=== PATIENT | male | born 1990 | race Caucasian/White ===

== ENCOUNTER 2017-04-04 06:23 | Emergency (ER) | payer SELFPAY ==
[~2017-04-04] VITALS: Ht 172.7 cm; Wt 88.6 kg
[2017-04-04 06:29] VITALS: Ht 172.7 cm; Wt 88.6 kg
[2017-04-04] MEDS ORDERED: KETOROLAC 30 MG INJ IV STA (06:49)
[2017-04-04 07:09] LABS: BASOPHILS % 0.2 % (0.0-2.0); EOSINOPHILS % 0.3 % (0.0-7.0); HEMATOCRIT 45.8 % (42.0-52.0); HEMOGLOBIN 16.3 g/dl (14.0-18.0); LYMPHOCYTES # 1.4 10^3/ul (0.8-2.9); LYMPHOCYTES % 15.1 % (15.0-51.0); MEAN CORPUSCULAR HEMOGLOBIN 29.5 pg (29.0-33.0); MEAN CORPUSCULAR HGB CONC 35.6 g/dl (32.0-37.0); MEAN CORPUSCULAR VOLUME 82.8 fl (82.0-101.0); MEAN PLATELET VOLUME 10.5 fl (7.4-10.4); MONOCYTE # 0.4 10^3/ul (0.3-0.9); MONOCYTES % 4.4 % (0.0-11.0); NEUTROPHIL # 7.6 10^3/ul (1.6-7.5); NEUTROPHILS % 79.5 % (39.0-77.0); PLATELET COUNT 201 10^3/UL (140-415); RED BLOOD COUNT 5.53 10^6/ul (4.70-6.10); RED CELL DISTRIBUTION WIDTH 12.2 % (11.5-14.5); WHITE BLOOD COUNT 9.6 10^3/ul (4.8-10.8)
[2017-04-04 07:29] LABS: ADD UMIC YES; UR ASCORBIC ACID NEGATIVE (NEGATIVE); UR BILIRUBIN (Dip) NEGATIVE (NEGATIVE); UR BLOOD (Dip) 1+ mg/dL (NEGATIVE); UR CLARITY CLOUDY (CLEAR); UR COLOR YELLOW (YELLOW); UR GLUCOSE (Dip) NEGATIVE (NEGATIVE); UR KETONES (Dip) NEGATIVE (NEGATIVE); UR LEUKOCYTE ESTERASE (Dip) NEGATIVE Leu/ul (NEGATIVE); UR MUCUS FEW /HPF (NONE SEEN); UR NITRITE (Dip) NEGATIVE (NEGATIVE); UR RBC 4 /HPF (0-5); UR SPECIFIC GRAVITY (Dip) 1.025 (1.003-1.030); UR TOTAL PROTEIN (Dip) 1+ mg/dl (NEGATIVE); UR UROBILINOGEN (Dip) NEGATIVE (NEGATIVE)
[2017-04-04 07:31] LABS: ALBUMIN 4.8 g/dl (3.3-4.9); ALBUMIN/GLOBULIN RATIO 1.45; BILIRUBIN,INDIRECT 0.5 mg/dl (0-1.1); BILIRUBIN,TOTAL 0.5 mg/dl (0.2-1.3); CALCIUM 9.4 mg/dl (8.4-10.2); CREATININE 0.84 mg/dl (0.61-1.24); POTASSIUM 3.9 mmol/L (3.5-5.1); TOTAL PROTEIN 8.1 g/dl (6.1-8.1)
--- NOTE | 2017-04-04 07:51 | RADRPT ---
PROCEDURE: US Abdomen. CLINICAL INDICATION: Abdominal Pain TECHNIQUE: Oates scale and color Doppler imaging of the right upper quadrant COMPARISON: None FINDINGS: The aorta and visualized inferior vena cava are unremarkable in appearance. The liver is homogeneou s in echotexture and no focal liver lesions are seen. A 2 cm stone was seen in the neck of the gallb ladder which did not move with decubitus positioning. No wall thickening or pericholecystic fluid w as seen. The patient did not have a sonographic Chaves's sign according to the electronics technology instructor but did receive recent pain medication. No intra or extrahepatic biliary dilatation is seen. The common joan e duct measures 4 mm in maximal dimension. The right kidney measures 10.1 cm. No hydronephrosis or renal calculi are seen. The pancreas is partially obscured by bowel gas. No ascites is seen. IMPRESSION: Study slightly limited by bowel gas. 2 cm stone impacted in the gallbladder neck without wall thick ening, pericholecystic fluid, or ductal dilatation. HIDA scan may be helpful if acute cholecystitis is suspected clinically. RPTAT: HLBE Physician Kurt Date Time Electronically viewed and signed by Physician Kurt on 04/04/2017 07:51 YENNY/
--- NOTE | 2017-04-04 08:20 | ERD ---
ER Documentation Chief Complaint Date/Time DATE: 04/04/17 TIME: 08:14 Chief Complaint abdominal pain since last night HPI 26-year-old male complaining of right upper quadrant abdominal pain since last night. Patient stated that he vomited twice. He took ibuprofen for pain, but did not help. Patient has history of gallstone. He ate churros and fries for dinner last night. Denies fever or chills. Denies diarrhea. Denies right lower quadrant abdominal pain. ROS All systems reviewed and are negative except as per history of present illness. Allergies Allergies: Coded Allergies: Penicillins (Verified Allergy, Mild, rash, 04/04/17) PMhx/Soc Medical and Surgical Hx: pt denies Surgical Hx Hx Miscellaneous Medical Probl: Yes (Gallstone) Hx Alcohol Use: No Hx Substance Use: No Hx Tobacco Use: No Smoking Status: Never smoker Physical Exam Vitals Vital Signs Date Time Temp Pulse Resp B/P Pulse Ox O2 Delivery O2 Flow Rate FiO2 04/04/17 06:29 97.4 60 16 146/89 99 Physical Exam General: Well-developed, well-nourished, conscious and coherent, in no distress Skin: Warm and dry without rash, good texture and turgor Head: Normocephalic without evidence of trauma Eyes: Sclera and conjunctivae normal; pupils equal, round, and reactive to light; extraocular movements are intact Chest: Normal AP diameter. Good expansion without retractions. Nontender. Lungs are clear to auscultate bilaterally with good tidal volume Heart: Regular rate and rhythm. No murmur, rub, or gallops heard Abdomen: Soft, right upper quadrant tenderness with slight guarding, no mass or rebound. Bowel sounds are active. No hepatosplenomegaly Back: Without spinal or CVA tenderness Extremities: Full range of motion. Good strength bilaterally. No clubbing, cyanosis, or edema. Peripheral pulses are intact. Sensation intact Neuro: Alert and oriented 4, GCS 15. Cranial nerves grossly intact. Motor and sensory exams nonfocal. Moves all extremities. Speech clear. Gait normal Result Diagram: 04/04/17 0700 04/04/17 0700 Results 24 hrs Laboratory Tests Test 04/04/17 07:00 White Blood Count 9.610^3/ul Red Blood Count 5.5310^6/ul Hemoglobin 16.3g/dl Hematocrit 45.8% Mean Corpuscular Volume 82.8fl Mean Corpuscular Hemoglobin 29.5pg Mean Corpuscular Hemoglobin Concent 35.6g/dl Red Cell Distribution Width 12.2% Platelet Count 78750^3/UL Mean Platelet Volume 10.5fl Neutrophils % 79.5% Lymphocytes % 15.1% Monocytes % 4.4% Eosinophils % 0.3% Basophils % 0.2% Nucleated Red Blood Cells % 0.0/100WBC Neutrophils # 7.610^3/ul Lymphocytes # 1.410^3/ul Monocytes # 0.410^3/ul Eosinophils # 0.010^3/ul Basophils # 0.010^3/ul Nucleated Red Blood Cells # 0.010^3/ul Urine Color YELLOW Urine Clarity CLOUDY Urine pH 5.0 Urine Specific [place] 1.025 Urine Ketones NEGATIVEmg/dL Urine Nitrite NEGATIVEmg/dL Urine Bilirubin NEGATIVEmg/dL Urine Urobilinogen NEGATIVEmg/dL Urine Leukocyte Esterase NEGATIVELeu/ul Urine Microscopic RBC 4/HPF Urine Microscopic WBC 2/HPF Urine Mucus FEW/HPF Urine Hemoglobin 1+mg/dL Urine Glucose NEGATIVEmg/dL Urine Total Protein 1+mg/dl Sodium Level 140mmol/L Potassium Level 3.9mmol/L Chloride Level 103mmol/L Carbon Dioxide Level 28mmol/L Anion Gap 13 Blood Urea Nitrogen 14mg/dl Creatinine 0.84mg/dl Glucose Level 130mg/dl Calcium Level 9.4mg/dl Total Bilirubin 0.5mg/dl Direct Bilirubin 0.00mg/dl Indirect Bilirubin 0.5mg/dl Aspartate Amino Transf (AST/SGOT) 25IU/L Alanine Aminotransferase (ALT/SGPT) 52IU/L Alkaline Phosphatase 101IU/L Total Protein 8.1g/dl Albumin 4.8g/dl Globulin 3.30g/dl Albumin/Globulin Ratio 1.45 Lipase 92U/L Current Medications Medications (Trade) Dose Ordered Sig/Magda Route PRN Reason Start Time Stop Time Status Last Admin Dose Admin Ketorolac Tromethamine (Toradol) 30 mg ONCE STAT IV 04/04/17 06:49 04/04/17 06:51 DC 04/04/17 07:05 PROCEDURE: US Abdomen. CLINICAL INDICATION: Abdominal Pain TECHNIQUE: Oates scale and color Doppler imaging of the right upper quadrant COMPARISON: None FINDINGS: The aorta and visualized inferior vena cava are unremarkable in appearance. The liver is homogeneous in echotexture and no focal liver lesions are seen. A 2 cm stone was seen in the neck of the gallbladder which did not move with decubitus positioning. No wall thickening or pericholecystic fluid was seen. The patient did not have a sonographic Chaves's sign according to the commercial counsel but did receive recent pain medication. No intra or extrahepatic biliary dilatation is seen. The common bile duct measures 4 mm in maximal dimension. The right kidney measures 10.1 cm. No hydronephrosis or renal calculi are seen. The pancreas is partially obscured by bowel gas. No ascites is seen. IMPRESSION: Study slightly limited by bowel gas. 2 cm stone impacted in the gallbladder neck without wall thickening, pericholecystic fluid, or ductal dilatation. HIDA scan may be helpful if acute cholecystitis is suspected clinically. RPTAT: HLBE Physician Kurt Date Time Electronically viewed and signed by Lynn Werner Physician on 04/04/2017 07 :51 LE/ CC: ARETHA MERRITT. BENCH WORKER [employer] Procedures/MDM Well-appearing 26-year-old male with history gallstones present ED with right upper quadrant abdominal pain since last night. Gallbladder ultrasound showed a 2 cm stone impacted in the gallbladder neck without wall thickening, pericholecystic fluid, or ductal dilatation. CBC, CMP, and lipase are unremarkable. UA has 1+ hemoglobin, otherwise unremarkable. Patient given Toradol IV in the ED for pain. Patient reports resolution of pain after Toradol. Patient does not have cholecystitis or choledocholithiasis. I doubt acute appendicitis, pancreatitis, bowel obstruction, or other acute abdomen. Patient is advised to follow-up with PCP for general surgery referral. Patient appears well, stable for discharge and outpatient management. Medical decision making shared with patient and family. Education provided to patient and family. Patient and family expressed understanding of the plan. Medications on discharge: None. Follow-up: Primary care provider in 2-3 days or return to ED if worse. Disclaimer: Inadvertent spelling and grammatical errors are likely due to EHR/ dictation software use and do not reflect on the overall quality of patient care. Also, please note that the electronic time recorded on this note does not necessarily reflect the actual time of the patient encounter. Departure Diagnosis: Primary Impression: Gallstone Cholecystitis presence: without cholecystitis Biliary obstruction: without biliary obstruction Qualified Code: K80.20 - Calculus of gallbladder without cholecystitis without obstruction Condition: Stable Patient Instructions: Treating Gallstones, Gallstones [facility] Usted se roman hecho un examen mdico de control que le indica que no est en ammy condicin que requiera tratamiento urgente en el Departamento de Emergencia. Un estudio ms profundo y el tratamiento de tan condicin pueden esperar sin ningn riesgo hasta que usted sea atendida/o en el consultorio de tan mdico o ammy cl abhilash. Es responsabilidad suya arreglar ammy she para el seguimiento del nora. MANEJO DE CONDICIONES NO URGENTES EN EL FUTURO 1) Si usted tiene un mdico de atencin primaria: Usted debera llamar a tan mdico de atencin primaria antes de venir al departamento de emergencia. Despus de las horas de consultorio, tan doctor o tan asociado/a est disponible por telfono. El mdico o enfermero de salud en el servicio telefnico puede asesorarle por donta medio para atender el problema, o nora contrario se puede programar ammy she. 2) Si usted no tiene un mdico de atencin primaria: Llame al mdico o clnica de referencia que aparece abajo constantino las horas de consultorio para hacer ammy she para que le vean. CLINICAS: [facility] [phone] [id number] [facility] 198 [phone] [address] [facility] 790 [phone] [address] [facility] [phone] [place] [id number] [phone] [facility]. [phone] [address] Additional Instructions: Llame al doctor MAANA y jaylin ammy SHE PARA DENTRO DE 2-3 GILL.Dgale a la secretaria que nosotros le instruimos hacer esta she.Avise o llame si tan condicin se empeora antes de la she. Regresa aqui si peor o no mejor. ARETHA MERRITT. CHARLENE Apr 04, 2017 08:20
== END 2017-04-04 08:15 | disposition home or self-care (01) ==
LOC: FTE 06:23
DX: K80.20 Calculus of gallbladder without cholecystitis without obstruction (principal)
CPT/HCPCS: 36415; 76705; 80053; 81001; 83690; 85025; 96374; 99285; J1885

== ENCOUNTER 2018-09-11 09:34 | Emergency (ER) | payer MEDICAID ==
[~2018-09-11] VITALS: Ht 177.8 cm; Wt 94.0 kg
[2018-09-11 09:39] VITALS: BP 182/96; PULSE 104; RESP 20; Ht 177.8 cm; Wt 94.0 kg
[2018-09-11] MEDS ORDERED: DIPHTH/TET/ACEL PERTUSS (ADULT) 0.5 ML VIAL IM* ONE (11:00)
[2018-09-11] MEDS ORDERED: CEFAZOLIN 1 GM INJ IM ONE (11:00)
[2018-09-11] MEDS ORDERED: LIDOCAINE 1% (MPF) 5 ML VIAL INJ ONE (11:00)
[2018-09-11] MEDS ORDERED: HYDROCODONE/APAP (5/325) TAB PO ONE (12:30)
[2018-09-11] MEDS ORDERED: NAPR-985 PO (12:31)
[2018-09-11] MEDS ORDERED: CEPH-443 PO (12:31)
[2018-09-11] MEDS ORDERED: HYDR-4011 PO (12:31)
--- NOTE | 2018-09-11 14:35 | ERD ---
ER Documentation Chief Complaint Chief Complaint pt bib self with c/o right thumb lac while at work , dressing in place HPI 28-year-old male presenting with laceration to right thumb. Patient was at work and was carrying items when he tripped and fell and it smashed his finger. Patient is right-hand dominant. He states he is able to move his finger. Does not recall when last tetanus shot was. Medical problems denies. Allergies penicillin. Surgical history is hernia. Social history denies ROS All systems reviewed and are negative except as per history of present illness. Medications Home Meds Active Scripts Naproxen* (Naprosyn*) 500 Mg Tablet, 500 MG PO BID PRN for PAIN AND/OR INFLAMMATION, #30 TAB Prov:VERONIQUE CUNNINGHAM PA-C 09/11/18 Hydrocodone/Acetaminophen ([place] 5-325 Tablet) 1 Each Tablet, 1 TAB PO Q6H PRN for PAIN, #7 TAB Prov:VERONIQUE CUNNINGHAM PA-C 09/11/18 Cephalexin* (Keflex*) 500 Mg Capsule, 500 MG PO QID for 7 Days, CAP Prov:VERONIQUE CUNNINGHAM PA-C 09/11/18 Allergies Allergies: Coded Allergies: Penicillins (Verified Allergy, Mild, rash, 04/04/17) PMhx/Soc Medical and Surgical Hx: pt denies Medical Hx, pt denies Surgical Hx Hx Miscellaneous Medical Probl: Yes (Gallstone) Hx Alcohol Use: No Hx Substance Use: No Hx Tobacco Use: No FmHx Family History: No diabetes, No coronary disease, No other Physical Exam Vitals Vital Signs Date Temp Pulse Resp B/P (MAP) Pulse Ox O2 O2 Flow FiO2 Time Delivery Rate 09/11/18 98.3 104 20 182/96 98 09:39 (124) Physical Exam GENERAL: The patient is well-appearing, well-nourished, in no acute distress CHEST: Clear to auscultation bilaterally. There are no rales, wheezes or rhonchi. HEART: Regular rate and rhythm. No murmurs, clicks, rubs or gallops. No S3 or S4. EXTREMITIES: Patient is able to isolate at the DIP joint of the right thumb. There is no obvious deformity NEUROLOGIC: Sensation grossly intact. Normal speech and gait. SKIN: Laceration noted to the dorsal aspect of the right thumb extending into t he nailbed. Mild active bleeding. Results 24 hrs Current Medications Medications Dose Sig/Magda Start Time Status Last (Trade) Ordered Route PRN Stop Time Admin Dose Reason Admin Cefazolin 1 gm ONCE ONCE 09/11/18 DC 09/11/18 Sodium IM 11:00 10:48 (Ancef) 09/11/18 11:01 Lidocaine 5 ml ONCE ONCE 09/11/18 DC (Xylocaine INJ 11:00 1% (Mpf)) 09/11/18 11:01 Diphtheria/ 0.5 ml ONCE ONCE 09/11/18 DC 09/11/18 Tetanus/Acell IM* 11:00 10:48 Pertussis 09/11/18 11:01 (Adacel) 1 tab ONCE ONCE 09/11/18 DC 09/11/18 Acetaminophen PO 12:30 12:47 / 09/11/18 12:31 Hydrocodone Bitart ([place] (5/325)) Procedures/MDM DIAGNOSTIC IMAGING REPORT Patient: CHARLIE STINSON : 1990 Age: 28 Sex: M MR #: [id number] DOS: 09/11/18 1036 Ordering MD: VALERIE CUNNINGHAM PA-C Location: [facility]TE Room/Bed: PROCEDURE: XR Thumb. CLINICAL INDICATION: Right thumb pain following injury. TECHNIQUE: 3 views of the right thumb are available for review. COMPARISON: None available FINDINGS: There is a markedly comminuted fragmented fracture of the right first distal phalanx. The joint spaces are well preserved. The surrounding soft tissues are unremarkable. No radiopaque foreign body is identified. IMPRESSION: Markedly comminuted fragmented fracture of the right first distal phalanx. Laceration Repair by me: Anesthesia: 1% lidocaine locally Location: Right thumb Tendon/Joint/Nerves: No injury Foreign body: None detected after copious irrigation and exploration Technique: 5 4-0 nylon simple Interrupted Sutures Complexity: No subcutaneous sutures/mucosal repair/edge excision Post Closure Length: 1 cm Patient's bleeding was easily controlled in the department and there is no indication of anemia. No evidence of compartment syndrome, neurologic injury, vascular injury, open joint, tendon laceration, or foreign body. Patient is appropriate for outpatient follow up. 48 hour wound check. Scar minimization instructions given. ER course: Ancef given ED. Toradol given in ED. MDM: 20-year-old male presenting with a laceration and fracture to right thumb. Patient has a open fracture will be treated with oral antibiotics. He is told to return in 2 days for wound check. Patient is discharged with antibiotics and pain medication. I have low suspicion for tendon or ligament injury as patient is able to move his finger without difficulty. Patient is neurovascularly intact. Patient is discharged with strict ER precautions and told to follow-up with primary care within 1-2 days for close evaluation. Patient is told symptoms change or worsen to immediately return to the ER. All questions answered at discharge Departure Diagnosis: Primary Impression: Laceration Additional Impression: Open fracture Condition: Stable Patient Instructions: Laceration, Hand Referrals: ARABELLA CONN MD [facility] YOU HAVE RECEIVED A MEDICAL SCREENING EXAM AND THE RESULTS INDICATE THAT YOU DO NOT HAVE A CONDITION THAT REQUIRES URGENT TREATMENT IN THE EMERGENCY DEPARTMENT. FURTHER EVALUATION AND TREATMENT OF YOUR CONDITION CAN WAIT UNTIL YOU ARE SEEN IN YOUR DOCTORS OFFICE WITHIN THE NEXT 1-2 DAYS. IT IS YOUR RESPONSIBILITY TO MAKE AN APPOINTMENT FOR FOLOW-UP CARE. IF YOU HAVE A PRIMARY DOCTOR --you should call your primary doctor and schedule an appointment IF YOU DO NOT HAVE A PRIMARY DOCTOR YOU CAN CALL OUR PHYSICIAN REFERRAL HOTLINE AT IF YOU CAN NOT AFFORD TO SEE A PHYSICIAN YOU CAN CHOSE FROM THE FOLLOWING [facility] [address] [facility]. [facility] [address] [facility] [address] [facility] [facility] [address] [facility] [address] [facility]. [facility] [address] Additional Instructions: FOLLOW UP WITH YOUR PRIMARY CARE PHYSICIAN TOMORROW.Return to this facility if you are not improving as expected. VERONIQUE CUNNINGHAM PA-C Sep 11, 2018 14:35
== END 2018-09-11 12:56 | disposition home or self-care (01) ==
LOC: FTE 09:34
DX: S62.521B Displaced fracture of distal phalanx of right thumb, initial encounter for open fracture (principal); W01.0XXA Fall on same level from slipping, tripping and stumbling without subsequent striking against object, initial encounter; Y92.89 Other specified places as the place of occurrence of the external cause; Z23 Encounter for immunization
CPT/HCPCS: 12001; 73140; 90471; 90715; 96372; J0690; Z7502; Z7610